=== PATIENT | male | born 2000 | race Two or more races ===

== ENCOUNTER 2025-03-14 07:15 | Emergency (ER) | payer OTHER ==
[~2025-03-14] VITALS: Ht 180.3 cm; Wt 88.2 kg
[2025-03-14] MEDS: CARBAMIDE PEROXIDE 6.5% OTIC SOLN 15 ML AU SCH (09:23)
[2025-03-14 10:10] VITALS: BP 142/81; TEMP 96.8; O2SAT 98
== END 2025-03-14 10:10 | disposition home or self-care (01) ==
LOC: M ED 07:15
DX: H61.23 Impacted cerumen, bilateral (principal)